=== PATIENT | male | born 1945 | race Caucasian/White ===

== ENCOUNTER 2019-06-29 16:23 | Observation (INO) ==
[2019-06-29] MEDS ORDERED: *HR* HYDROmorphone (PF) 1 MG/ML SYRINGE IVP PRN (17:06)
[2019-06-29] MEDS ORDERED: Ketorolac 30 MG/ML VIAL IVP ONE (17:06)
[2019-06-29 17:18] LABS: Basophils % 0.5 %; Eosinophils # 0.1 K/mcL (0.0-0.6); Eosinophils % 1.4 %; Hematocrit 43.9 % (37.5-50.1); Hemoglobin 15.3 g/dL (12.9-16.9); Immature Granulocytes % 0.3 % (0-4); Lymphocytes # 2.2 K/mcL (0.6-4.6); Lymphocytes % 29.4 %; Mean Corpuscular HGB Conc 34.9 g/dL (31.6-35.5); Mean Corpuscular Hemoglobin 30.7 pg (28.0-33.3); Mean Corpuscular Volume 88.2 fL (83.0-100.0); Mean Platelet Volume 9.3 fL (9.4-12.4); Monocytes # 0.6 K/mcL (0.0-1.3); Monocytes % 8.4 %; Neutrophils # 4.6 K/mcL (1.6-8.9); Platelet Count 249 K/mcL (140-400); Red Blood Count 4.98 M/mcL (4.19-5.50); Red Cell Distribution Width 12.8 % (11.5-14.5); White Blood Count 7.6 K/mcL (4.3-11.1)
--- NOTE | 2019-06-29 17:20 | Emergency Department Note ---
Disposition Clinical Impression: Left flank pain, Left ureteral stone Disposition: Admitted As Inpatient Condition: Good Referrals: Melissa Callahan DO [Primary Care Provider] - Forms: ED Satisfaction Letter, Work/School Release Time of Disposition: 19:01 Abdominal Pain HPI - General Chief Complaint: ED Abdominal Pain Stated Complaint: Kidney stone right side Time Seen by Provider: 06/29/19 16:49 Source: patient Mode of arrival: ambulatory Limitations: no limitations Nursing Notes Reviewed: Yes Vital Signs Reviewed: Yes - History of Present Illness HPI Narrative: 73-year-old male presents emergency room for left-sided flank and abdominal pain. Patient has a history of a recently diagnosed kidney stone on Thursday. 3 mm left mid ureter. Had been taking oxycodone. Pain got worse today about 3 PM. Admits to vomiting. Has no other complaints at this time. Pain is isolated to the left flank and left-sided was abdomen. Pain Scale: 10 - Related Data Home Medications Medication Instructions Recorded Confirmed Cholecalciferol (Vitamin D3) 1,000 unit PO DAILY 06/29/19 06/29/19 [Vitamin D] [place]-3/Dha/Epa/Fish Oil [Fish Oil 1 each PO DAILY 06/29/19 06/29/19 EC 1,000 mg Softgel] Omeprazole 20 mg PO DAILY 06/29/19 06/29/19 Vit A/Vit C/Vit E/Zinc/Copper 1 each PO BID 06/29/19 06/29/19 [Icaps Areds Softgel] hydroCHLOROthiazide 12.5 mg PO DAILY 06/29/19 06/29/19 [Hydrochlorothiazide] Allergies Allergy/AdvReac Type Severity Reaction Status Date / Time No Known Allergies Allergy Verified 06/29/19 16:25 Review of Systems: Gen.: No fevers or chills or new weakness Eyes: Denies double vision or any vision changes Ears: Denies any otalgia Pharynx: Denies sore throat CV: Denies chest pain. Denies palpitations Respiratory: Denies any cough or sputum production. No shortness of breath. GI: Denies any nausea, vomiting, diarrhea, constipation. Denies abdominal pain Neuro: Denies any headache. No problems with ambulation. No numbness. Skin: Denies any rashes or abrasions Psych: Denies any depression or suicidal or homicidal ideation Musculoskeletal: Denies any arthralgias or myalgias All systems ED: reviewed and negative except as stated. Abdominal Pain PMH - Past Medical History Medical history: Reports: kidney stones Male Surgical History: Reports: non-contributory, other - Social History Smoking status: Never smoker Alcohol use: Reports: none Drug use: Reports: none Physical Exam - General Limitations: no limitations General appearance: alert, in distress - Head Head exam: atraumatic, normocephalic - ENT ENT exam: normal exam - Neck Neck exam: Present: normal inspection - Chest Chest inspection: Present: normal inspection - Respiratory Respiratory exam: Present: normal lung sounds bilaterally - Cardiovascular Cardiovascular exam: Present: regular rate, normal rhythm - Abdominal Exam Abdominal exam: Present: soft, tenderness (Patient has tenderness over the left flank and left-sided the abdomen.), normal bowel sounds - Back Exam Back exam: Present: CVA tenderness (L) - Neurological Exam Neurological exam: Present: alert, oriented X3 - Psychiatric Psychiatric exam: Present: normal affect - Skin Skin exam: Present: warm, dry, intact Course Vital Signs Temperature 97.8 F 06/29/19 16:26 Pulse Rate 77 06/29/19 16:26 Respiratory Rate 18 06/29/19 16:26 Blood Pressure 180/92 06/29/19 16:26 O2 Sat by Pulse Oximetry 97 06/29/19 16:26 Temperature 97.8 F 06/29/19 17:30 Pulse Rate 71 06/29/19 18:52 Respiratory Rate 16 06/29/19 18:52 Blood Pressure 143/69 06/29/19 18:52 O2 Sat by Pulse Oximetry 95 06/29/19 18:52 Oxygen Delivery Oxygen Delivery Room Air Abdominal Pain - MDM Narrative Medical decision making narrative: I did speak with Dr. Pablo with urology. We will see the patient and likely do a stone retrieval tomorrow. Continue with pain control. We have ordered some oral pain medication. - Medical Records Medical records reviewed: Yes I reviewed the patient's medical records. - Lab Data Lab results reviewed: Yes I reviewed the patient's lab results. Result diagrams: 06/29/19 17:04 06/29/19 17:04 Lab Results 06/29/19 06/29/19 06/29/19 Range/Units 17:04 17:04 17:55 WBC 7.6 (4.3-11.1) K/mcL RBC 4.98 (4.19-5.50) M/mcL Hgb 15.3 (12.9-16.9) g/dL Hct 43.9 (37.5-50.1) % MCV 88.2 (83.0-100.0) fL MCH 30.7 (28.0-33.3) pg MCHC 34.9 (31.6-35.5) g/dL RDW 12.8 (11.5-14.5) % Plt Count 249 (140-400) K/mcL MPV 9.3 L (9.4-12.4) fL Immature Gran % 0.3 (0-4) % Seg Neutrophils % 60.0 % Lymphocytes % 29.4 % Monocytes % 8.4 % Eosinophils % 1.4 % Basophils % 0.5 % Neutrophils # 4.6 (1.6-8.9) K/mcL Lymphocytes # 2.2 (0.6-4.6) K/mcL Monocytes # 0.6 (0.0-1.3) K/mcL Eosinophils # 0.1 (0.0-0.6) K/mcL Basophils # 0.0 (0.0-0.2) K/mcL Sodium 136 (136-145) mEq/L Potassium 3.5 (3.5-5.1) mEq/L Chloride 102 (98-107) mEq/L Carbon Dioxide 26 (23-29) mEq/L BUN 16 (8-23) mg/dL Creatinine 1.14 (0.70-1.30) mg/dL Est GFR ( Amer) > 60 (> 60) Est GFR (Non-Af Amer) > 60 (> 60) BUN/Creatinine Ratio 14 (6-26) Glucose 125 H (70-105) mg/dL Calculated Osmolality 285 (280-300) Calcium 9.5 (8.6-10.3) mg/dL Total Bilirubin 0.5 (0.3-1.0) mg/dL AST 25 (13-39) Units/L ALT 19 (7-52) Units/L Alkaline Phosphatase 65 (34-104) Units/L Serum Total Protein 7.7 (6.4-8.9) g/dL Albumin 4.6 (3.5-5.7) g/dL Globulin 3.1 (2.4-3.5) g/dL Albumin/Globulin Ratio 1.5 (1.1-2.2) Urine Color Yellow (Yellow) Urine Clarity Clear (Clear) Urine pH 6.0 (5.0-8.0) pH Units Ur Specific [place] > 1.030 H (1.010-1.025) Urine Protein Trace (Neg-Trace) mg/dL Urine Glucose (UA) Normal (Normal) mg/dL Urine Ketones Negative (Negative) mg/dL Urine Blood Negative (Negative) Urine Nitrite Negative (Negative) Urine Bilirubin Negative (Negative) Urine Urobilinogen Normal (Normal) mg/dL Ur Leukocyte Esterase Negative (Negative) Ur Culture Indicated? NO (NO) - Radiology Data Radiology results reviewed: Yes I reviewed the patient's radiology results.
[2019-06-29 17:36] LABS: Alanine Aminotransferase 19 Units/L (7-52); Albumin 4.6 g/dL (3.5-5.7); Albumin/Globulin Ratio 1.5 (1.1-2.2); Alkaline Phosphatase 65 Units/L (34-104); Aspartate Amino Transferase 25 Units/L (13-39); BUN/Creatinine Ratio 14 (6-26); Bilirubin,Total 0.5 mg/dL (0.3-1.0); Blood Urea Nitrogen 16 mg/dL (8-23); Calcium 9.5 mg/dL (8.6-10.3); Carbon Dioxide 26 mEq/L (23-29); Chloride 102 mEq/L (98-107); Globulin 3.1 g/dL (2.4-3.5); Glucose 125 mg/dL (70-105); Osmolality,Calculated 285 (280-300); Potassium 3.5 mEq/L (3.5-5.1); Sodium 136 mEq/L (136-145); Total Protein 7.7 g/dL (6.4-8.9); eGFR For African Americans > 60 (> 60); eGFR For Non-African Americans > 60 (> 60)
[2019-06-29 18:05] LABS: Bilirubin,Urine Negative (Negative); Blood,Urine Negative (Negative); Clarity,Urine Clear (Clear); Color,Urine Yellow (Yellow); Glucose,Urine (UA) Normal (Normal); Ketones,Urine Negative (Negative); Leukocyte Esterase,Urine Negative (Negative); Nitrite,Urine Negative (Negative); Protein,Urine Trace mg/dL (Neg-Trace); Specific Gravity,Urine > 1.030 (1.010-1.025); Urobilinogen,Urine Normal (Normal)
[2019-06-29] MEDS ORDERED: *HR* HYDROmorphone (PF) 1 MG/ML SYRINGE IVP ONE (18:24)
[2019-06-29] MEDS ORDERED: *HR* OxyCODONE ER (12 HR) 10 MG TABLET PO ONE (18:45)
[2019-06-29] MEDS ORDERED: Ondansetron 4 MG/2 ML VIAL IVP ONE (20:11)
[2019-06-29] MEDS ORDERED: Naloxone 0.4 MG/ML INJ IVP PRN (20:50)
[2019-06-29] MEDS ORDERED: Acetaminophen 325 MG TABLET PO PRN (21:48)
[2019-06-29] MEDS ORDERED: traMADol 50 MG TABLET PO PRN (21:50)
[2019-06-29] MEDS ORDERED: Ondansetron 4 MG/2 ML VIAL IVP PRN (21:50)
[2019-06-29] MEDS ORDERED: amLODIPine 5 MG TABLET PO ONE (22:00)
[2019-06-29] MEDS: Ringers Solution, Lactated 1,000 ML IVC SCH (22:02)
--- NOTE | 2019-06-30 00:39 | Internal Med History&Physical ---
Date of Encounter: 06/29/19 Time of Encounter: 23:30 Internal Medicine - H&P: HPI Chief complaint: left abdominal pain Admitted From: Home Plans for Post Hospital Care: Home History of present illness: Chino Ferreira is a 73-year-old man with hypertension who presented to the emergency room with complaints of left lumbar and flank pain that has been going on for the past 5 days previously coming to the emergency room to undergo CT scan which found a nonobstructing mid left ureteral calculus measuring 3 mm Kash for conservative management with watchful waiting. He has been taking oxycodone at home but says the pain has continued to worsen and this afternoon was greatly exacerbated accompanied by nausea and vomiting. He characterized the pain as exquisitely tender and had to be given multiple narcotic doses in the emergency room to achieve moderate relief. Urology was consulted and he will be seen. La b work was grossly unremarkable. Vitals: Reviewed General: Well-developed man sitting up in bed and notable discomfort. Skin: Warm and supple. HEENT: Moist mucous membranes. No conjunctivae pallor. Neck: No lymphadenopathy. No JVD. No carotid bruits. No palpable thyroid. Chest: Normal thoracic expansion. Normal breath sounds. Clear to auscultation. Heart: Normal S1 & S2; rhythmic. No rubs or murmurs. Abdomen: Non-distended, soft and tender to palpation in the left flank. Extremities: No clubbing, cyanosis or edema. No calf tenderness. Normal distal pulses. Neurological: Awake, alert and oriented to person, place and time. No focal deficits. Psych: Affect appropriate. Assessment/Plan 1. Left kidney stone: The patient has now developed worsening pain over the last few days despite analgesics and is concerning that may now have an obstructive component and would need extraction seeing as it has not passed on its own. Will place him on IVF, analgesics/antiemetics as needed and await urology consultation for further management recommendations. No indication for antimicrobials at this time. 2. Hypertension: Poorly controlled. Will stop HCTZ for now and start amlodipine 5mg daily in the interim. 3. GERD: On omeprazole. 4. DVT prophylaxis: Antiembolic stockings ordered. Past Med Surg Social Fam HX - Past Medical History Medical history: kidney stones - Past Surgical History Additional surgical history: bladder surgery - Social History Smoking Status: Never smoker Smokeless Tobacco Status: No Alcohol use: none Drug use: none Internal Medicine - H&P: Meds Cholecalciferol (Vitamin D3) [Vitamin D] 1,000 unit PO DAILY 06/29/19 [History] [place]-3/Dha/Epa/Fish Oil [Fish Oil EC 1,000 mg Softgel] 1 each PO DAILY 06/29/19 [History] Omeprazole 20 mg PO DAILY 06/29/19 [History] Vit A/Vit C/Vit E/Zinc/Copper [Icaps Areds Softgel] 1 each PO BID 06/29/19 [History] hydroCHLOROthiazide [Hydrochlorothiazide] 12.5 mg PO DAILY 06/29/19 [History] Allergy/AdvReac Type Severity Reaction Status Date / Time No Known Allergies Allergy Verified 06/29/19 16:25 All Systems PM: A 10-system review of systems was performed and is negative for pertinent findin gs except as documented above in the HPI.Family history reviewed and found non-contributory. - Constitutional Vitals: Temp Pulse Resp BP Pulse Ox 97.6 F 56 15 132/62 93 06/29/19 23:20 06/29/19 23:20 06/29/19 23:20 06/29/19 23:20 06/29/19 23:20 Exam: . Internal Med - H&P Results - Labs CBC & Chem 7: 06/29/19 17:04 06/29/19 17:04 Labs: Short CBC 06/29/19 Range/Units 17:04 WBC 7.6 (4.3-11.1) K/mcL Hgb 15.3 (12.9-16.9) g/dL Hct 43.9 (37.5-50.1) % Plt Count 249 (140-400) K/mcL Neutrophils # 4.6 (1.6-8.9) K/mcL BMP 06/29/19 17:04 Sodium 136 Potassium 3.5 Chloride 102 Carbon Dioxide 26 BUN 16 Creatinine 1.14 Glucose 125 H Calcium 9.5 Liver Function 06/29/19 Range/Units 17:04 Total Bilirubin 0.5 (0.3-1.0) mg/dL AST 25 (13-39) Units/L ALT 19 (7-52) Units/L Alkaline Phosphatase 65 (34-104) Units/L Albumin 4.6 (3.5-5.7) g/dL Urine 06/29/19 Range/Units 17:55 Urine Color Yellow (Yellow) Urine Clarity Clear (Clear) Urine pH 6.0 (5.0-8.0) pH Units Ur Specific [place] > 1.030 H (1.010-1.025) Urine Protein Trace (Neg-Trace) mg/dL Urine Glucose (UA) Normal (Normal) mg/dL - Time Spent With Patient Total time spent is greater than 50% in coordination of care (as documented) at patient's floor/unit and/or counseling patient: Greater than 35 minutes
[2019-06-30 01:53] LABS: Basophils % 0.2 %; Eosinophils % 0.1 %; Hematocrit 38.9 % (37.5-50.1); Immature Granulocytes % 0.4 % (0-4); Lymphocytes # 1.2 K/mcL (0.6-4.6); Lymphocytes % 9.8 %; Mean Corpuscular HGB Conc 34.4 g/dL (31.6-35.5); Mean Corpuscular Hemoglobin 30.7 pg (28.0-33.3); Mean Platelet Volume 9.4 fL (9.4-12.4); Monocytes # 0.8 K/mcL (0.0-1.3); Monocytes % 6.9 %; Neutrophils # 9.9 K/mcL (1.6-8.9); Platelet Count 201 K/mcL (140-400); Red Blood Count 4.37 M/mcL (4.19-5.50); Red Cell Distribution Width 12.7 % (11.5-14.5); Segmented Neutrophils % 82.6 %
[2019-06-30 01:55] LABS: Hemoglobin 13.4 g/dL (12.9-16.9)
[2019-06-30 01:58] LABS: INR 1.2; Prothrombin Time 13.4 Seconds (9.4-12.1)
[2019-06-30 02:01] LABS: BUN/Creatinine Ratio 16 (6-26); Blood Urea Nitrogen 19 mg/dL (8-23); Calcium 8.8 mg/dL (8.6-10.3); Carbon Dioxide 27 mEq/L (23-29); Chloride 103 mEq/L (98-107); Glucose 105 mg/dL (70-105); Osmolality,Calculated 289 (280-300); Potassium 3.9 mEq/L (3.5-5.1); Sodium 138 mEq/L (136-145); eGFR For African Americans > 60 (> 60); eGFR For Non-African Americans 60 (> 60)
[2019-06-30] MEDS: Ketorolac 30 MG/ML VIAL IVP PRN ×2 (04:22→11:29)
[2019-06-30] MEDS: Ringers Solution, Lactated 1,000 ML IVC SCH (06:17)
[2019-06-30] MEDS ORDERED: Cholecalciferol (D-3) 1,000 UNIT (25MCG) TABLET PO SCH (09:00)
[2019-06-30] MEDS ORDERED: FISH OIL 1000 MG PO SCH (09:00)
[2019-06-30] MEDS ORDERED: amLODIPine 5 MG TABLET PO SCH (09:00)
--- NOTE | 2019-06-30 13:49 | Urology - Consult Note ---
<Antonette Gardner N - Last Filed: 06/30/19 13:46> Date of Encounter: 06/30/19 Time of Encounter: 12:00 - Assessment and Plan (1) Left flank pain Current Visit: Yes Status: Acute Assessment and plan: Patient is a 73-year-old male who presents with a history of left flank pain secondary to a 3 mm left midureteral stone. Patient has been admitted to the hospitalist service, and he is awaiting stone extraction later this afternoon. Currently, pain and nausea are well controlled. (2) Left ureteral stone Current Visit: Yes Status: Acute Assessment and plan: Patient is a 73-year-old male who presents with a 3 mm left midureteral stone. We discussed surgical risks and benefits, and patient verbalized understanding. Patient signed consent and he is prepared undergo a left ureteroscopic stone extraction as well as a left ureteral stent placement. Patient will remain nothing by mouth, and he is anticipating surgery later this afternoon with Dr. Pablo. Urology CN:[facility] Consult date: 06/30/19 Reason for consult Urology: Other (Left ureteral stone) Requesting physician: Samuel Whiting History of present illness: Patient is a 73-year-old male who presents with a 3 mm left midureteral stone. Patient initially presented to the emergency department on 06/25/2019 where he underwent a CT of the abdomen and pelvis revealing a 3 mm left mid ureteral stone without hydronephrosis. Patient was subsequently discharged with oral pain medication and instructed to follow-up as an outpatient. Patient reports the pain acutely worsened overnight, and he re-presents the emergency department for further evaluation. Patient was subsequently admitted for intractable pain as well as nausea and vomiting. Patient has a significant past history for renal stones, and he has undergone ESWL and ureteroscopy. Patient denies any known family history of renal stones. He admits to continued left flank pain, but he denies any dysuria, gross hematuria, fever, chills or incontinence. Past Med Surg Social Fam HX - Past Medical History Medical history: kidney stones - Past Surgical History Additional surgical history: bladder surgery - Social History Smoking Status: Never smoker Smokeless Tobacco Status: No Alcohol use: none Drug use: none - Additional Family History Additional family history: No known documented family history of renal stones Medications and Allergies Cholecalciferol (Vitamin D3) [Vitamin D] 1,000 unit PO DAILY 06/29/19 [History] [place]-3/Dha/Epa/Fish Oil [Fish Oil EC 1,000 mg Softgel] 1 each PO DAILY 06/29/19 [History] Omeprazole 20 mg PO DAILY 06/29/19 [History] Vit A/Vit C/Vit E/Zinc/Copper [Icaps Areds Softgel] 1 each PO BID 06/29/19 [History] hydroCHLOROthiazide [Hydrochlorothiazide] 12.5 mg PO DAILY 06/29/19 [History] Allergy/AdvReac Type Severity Reaction Status Date / Time No Known Allergies Allergy Verified 06/29/19 16:25 Review of Systems - Constitutional no chills, no fatigue, no fever(s) - EENT Nose, mouth and throat: no dizziness, no headache(s) - Cardiovascular no chest pain, no diaphoresis, no dyspnea - Respiratory no cough, no dyspnea - Gastrointestinal abdominal pain, nausea, vomiting - Genitourinary flank pain, no change in urinary stream, no difficulty urinating, no dysuria, no hematuria, no urinary frequency, no urinary hesitancy, no urinary incontinence, no urinary urgency - Musculoskeletal back pain, no muscle weakness - Integumentary no erythema, no rash - Neurological no confusion, no syncope - Psychiatric no anxiety, no confusion - Hematologic/Lymphatic no easy bleeding, no easy bruising - Allergic/Immunologic no throat swelling, no wheezing Exam Initial Vital Signs Temp Pulse Resp BP Pulse Ox 97.8 F 77 18 180/92 97 06/29/19 16:26 06/29/19 16:26 06/29/19 16:26 06/29/19 16:26 06/29/19 16:26 - General physical appearance Present: well developed, no distress, no pain - Eyes Present: PERRL, normal ocular movement - ENT Present: normal nares, no hearing loss, no congestion - Neck Present: no masses, trachea midline, no lymphadenopathy - Respiratory Present: normal respiratory effort - Cardiovascular Cardiovascular exam IM: RRR - Abdomen Abdomen: Present: soft, non tender. Absent: distended - Genitourinary other (Urine is transparent, clear yellow; no CVAT) - Integumentary Present: no rash, no abnormal pigmentation - Neurologic Present: normal coordination - Musculoskeletal Present: other (Normal posture) Urology Results - Labs 06/30/19 01:09 06/30/19 01:08 Abnormal lab results WBC 12.0 K/mcL (4.3-11.1) H D 06/30/19 01:09 MPV 9.3 fL (9.4-12.4) L 06/29/19 17:04 Neutrophils # 9.9 K/mcL (1.6-8.9) H 06/30/19 01:09 PT 13.4 Seconds (9.4-12.1) H 06/30/19 01:08 Glucose 125 mg/dL (70-105) H 06/29/19 17:04 Ur Specific [place] > 1.030 (1.010-1.025) H 06/29/19 17:55 Diabetes panel 06/29/19 06/30/19 Range/Units 17:04 01:08 Sodium 136 138 (136-145) mEq/L Potassium 3.5 3.9 (3.5-5.1) mEq/L Chloride 102 103 (98-107) mEq/L Carbon Dioxide 26 27 (23-29) mEq/L BUN 16 19 (8-23) mg/dL Creatinine 1.14 1.20 (0.70-1.30) mg/dL Glucose 125 H 105 (70-105) mg/dL Calcium 9.5 8.8 (8.6-10.3) mg/dL AST 25 (13-39) Units/L ALT 19 (7-52) Units/L Alkaline Phosphatase 65 (34-104) Units/L Albumin 4.6 (3.5-5.7) g/dL Calcium panel 06/29/19 06/30/19 Range/Units 17:04 01:08 Calcium 9.5 8.8 (8.6-10.3) mg/dL Albumin 4.6 (3.5-5.7) g/dL Pituitary panel 06/29/19 06/30/19 Range/Units 17:04 01:08 Sodium 136 138 (136-145) mEq/L Potassium 3.5 3.9 (3.5-5.1) mEq/L Chloride 102 103 (98-107) mEq/L Carbon Dioxide 26 27 (23-29) mEq/L BUN 16 19 (8-23) mg/dL Creatinine 1.14 1.20 (0.70-1.30) mg/dL Glucose 125 H 105 (70-105) mg/dL Calcium 9.5 8.8 (8.6-10.3) mg/dL Adrenal panel 06/29/19 06/30/19 Range/Units 17:04 01:08 Sodium 136 138 (136-145) mEq/L Potassium 3.5 3.9 (3.5-5.1) mEq/L Chloride 102 103 (98-107) mEq/L Carbon Dioxide 26 27 (23-29) mEq/L BUN 16 19 (8-23) mg/dL Creatinine 1.14 1.20 (0.70-1.30) mg/dL Glucose 125 H 105 (70-105) mg/dL Calcium 9.5 8.8 (8.6-10.3) mg/dL Total Bilirubin 0.5 (0.3-1.0) mg/dL AST 25 (13-39) Units/L ALT 19 (7-52) Units/L Alkaline Phosphatase 65 (34-104) Units/L Albumin 4.6 (3.5-5.7) g/dL All other labs normal. - Imaging CT scan - abdomen: report reviewed, image reviewed CT scan - pelvis: report reviewed, image reviewed Consult Discharge Plan - Plan Referrals: Melissa Callahan DO [Primary Care Provider] - 07/11/19 8:00 am <Efrain Pablo - Last Filed: 06/30/19 14:49> Date of Encounter: 06/30/19 - Assessment and Plan (1) Left flank pain Current Visit: Yes Status: Acute Assessment and plan: Seen and examined independently. Agree with PA assessment and plan. Discussed findings and options with patient. Plan: Ux/laser/stent today (2) Left ureteral stone Current Visit: Yes Status: Acute Assessment and plan: 3mm intermittently symptomatic with second trip to ED. Discussed RBA of Ureteroscopy laser. Plan: Ux/Laser/Stent (3) Calculus of kidney Current Visit: No Status: Acute Assessment and plan: Small nonobstructive stone in left kidney. Preventative measured indicated. Plan: will arrange for metabolic evaluation as outpatient. (4) Left renal mass Current Visit: Yes Status: Acute Assessment and plan: Hypodense lesion on noncontrast CT in lower pole of left kidney. Definitive imaging required. Plan: will arrange for renal US. Exam Initial Vital Signs Temp Pulse Resp BP Pulse Ox 97.8 F 77 18 180/92 97 06/29/19 16:26 06/29/19 16:26 06/29/19 16:26 06/29/19 16:26 06/29/19 16:26 Urology Results - Labs 06/30/19 01:09 06/30/19 01:08 Abnormal lab results WBC 12.0 K/mcL (4.3-11.1) H D 06/30/19 01:09 MPV 9.3 fL (9.4-12.4) L 06/29/19 17:04 Neutrophils # 9.9 K/mcL (1.6-8.9) H 06/30/19 01:09 PT 13.4 Seconds (9.4-12.1) H 06/30/19 01:08 Glucose 125 mg/dL (70-105) H 06/29/19 17:04 Ur Specific [place] > 1.030 (1.010-1.025) H 06/29/19 17:55 Diabetes panel 06/29/19 06/30/19 Range/Units 17:04 01:08 Sodium 136 138 (136-145) mEq/L Potassium 3.5 3.9 (3.5-5.1) mEq/L Chloride 102 103 (98-107) mEq/L Carbon Dioxide 26 27 (23-29) mEq/L BUN 16 19 (8-23) mg/dL Creatinine 1.14 1.20 (0.70-1.30) mg/dL Glucose 125 H 105 (70-105) mg/dL Calcium 9.5 8.8 (8.6-10.3) mg/dL AST 25 (13-39) Units/L ALT 19 (7-52) Units/L Alkaline Phosphatase 65 (34-104) Units/L Albumin 4.6 (3.5-5.7) g/dL Calcium panel 06/29/19 06/30/19 Range/Units 17:04 01:08 Calcium 9.5 8.8 (8.6-10.3) mg/dL Albumin 4.6 (3.5-5.7) g/dL Pituitary panel 06/29/19 06/30/19 Range/Units 17:04 01:08 Sodium 136 138 (136-145) mEq/L Potassium 3.5 3.9 (3.5-5.1) mEq/L Chloride 102 103 (98-107) mEq/L Carbon Dioxide 26 27 (23-29) mEq/L BUN 16 19 (8-23) mg/dL Creatinine 1.14 1.20 (0.70-1.30) mg/dL Glucose 125 H 105 (70-105) mg/dL Calcium 9.5 8.8 (8.6-10.3) mg/dL Adrenal panel 06/29/19 06/30/19 Range/Units 17:04 01:08 Sodium 136 138 (136-145) mEq/L Potassium 3.5 3.9 (3.5-5.1) mEq/L Chloride 102 103 (98-107) mEq/L Carbon Dioxide 26 27 (23-29) mEq/L BUN 16 19 (8-23) mg/dL Creatinine 1.14 1.20 (0.70-1.30) mg/dL Glucose 125 H 105 (70-105) mg/dL Calcium 9.5 8.8 (8.6-10.3) mg/dL Total Bilirubin 0.5 (0.3-1.0) mg/dL AST 25 (13-39) Units/L ALT 19 (7-52) Units/L Alkaline Phosphatase 65 (34-104) Units/L Albumin 4.6 (3.5-5.7) g/dL All other labs normal.
--- NOTE | 2019-06-30 14:20 | Internal Med Progress Note ---
Hospitalist Progress Note - Encounter Date of Encounter: 06/30/19 Time of Encounter: 11:00 - Subjective Interval History: Mr. Ferreira is a 73-year-old man with hypertension who presented to the emergency room with complaints of left lumbar and flank pain that has been going on for the past 5 days previously coming to the emergency room to undergo CT scan which found a nonobstructing mid left ureteral calculus measuring 3 mm Kash for conservative management with watchful waiting. He has been taking oxycodone at home but says the pain has continued to worsen and this afternoon was greatly exacerbated accompanied by nausea and vomiting. He was admitted in the hospital and placed him on IV analgesics and IV hydration. Pt stated he still in severe Left flank pain associated with Nausea and Vomiting. - Exam Vitals: Temp Pulse Resp BP Pulse Ox 97.9 F 70 16 161/76 94 06/30/19 11:21 06/30/19 11:21 06/30/19 11:21 06/30/19 11:21 06/30/19 11:21 Exam: Gen: Alert, awake, Oriented to time,place and person Chest: Diminished breath sounds B/L, No wheezing, No crackles, No rales Heart: S1S2+ RRR No murmurs Abd: Soft, NT, BS +, No organomegaly Back: Left CVA tenderness Ext: No edema, pulses are palpable, No calf tenderness Neuro : No acute focal neuro deficits noticed Skin: No rash. - Assessment and Plan (1) Left ureteral stone Current Visit: Yes Status: Acute Assessment and Plan: He does have 3mm Mid left ureter calculus Cont IV analgesics UA - WNL No signs of inf Urology on board Scheduled for possible cystoscopy (2) Calculus of kidney Current Visit: No Status: Acute Assessment and Plan: care as above (3) HTN (hypertension) Current Visit: Yes Status: Acute Assessment and Plan: Fairly controlled Cont Norvasc for now on IV hydralazine PRN (4) GERD (gastroesophageal reflux disease) Current Visit: Yes Status: Acute Assessment and Plan: on PPI - Time Spent with Patient Total time spent is greater than 50% in coordination of care (as documented) at patient's floor/unit and/or counseling patient: Internal Medicine: Result - Labs CBC & Chem 7: 06/30/19 01:09 06/30/19 01:08 Labs: Short CBC 06/29/19 06/30/19 Range/Units 17:04 01:09 WBC 7.6 12.0 H D (4.3-11.1) K/mcL Hgb 15.3 13.4 D (12.9-16.9) g/dL Hct 43.9 38.9 (37.5-50.1) % Plt Count 249 201 (140-400) K/mcL Neutrophils # 4.6 9.9 H (1.6-8.9) K/mcL BMP 06/29/19 06/30/19 17:04 01:08 Sodium 136 138 Potassium 3.5 3.9 Chloride 102 103 Carbon Dioxide 26 27 BUN 16 19 Creatinine 1.14 1.20 Glucose 125 H 105 Calcium 9.5 8.8 Liver Function 06/29/19 Range/Units 17:04 Total Bilirubin 0.5 (0.3-1.0) mg/dL AST 25 (13-39) Units/L ALT 19 (7-52) Units/L Alkaline Phosphatase 65 (34-104) Units/L Albumin 4.6 (3.5-5.7) g/dL Urine 06/29/19 Range/Units 17:55 Urine Color Yellow (Yellow) Urine Clarity Clear (Clear) Urine pH 6.0 (5.0-8.0) pH Units Ur Specific [place] > 1.030 H (1.010-1.025) Urine Protein Trace (Neg-Trace) mg/dL Urine Glucose (UA) Normal (Normal) mg/dL - ABG Interpretation ABG results: PT/INR, D-dimer PT 13.4 Seconds (9.4-12.1) H 06/30/19 01:08 Consult Discharge Plan - Plan Referrals: Melissa Callahan DO [Primary Care Provider] - 07/11/19 8:00 am (3) HTN (hypertension) Qualifiers: Hypertension type: essential hypertension Qualified Code(s): I10 - Essential (primary) hypertension
[2019-06-30] MEDS ORDERED: *HR* Midazolam HCl 2 MG/2 ML VIAL ONE (16:01)
[2019-06-30] MEDS ORDERED: *HR* FentaNYL (PF) 100 MCG/2 ML VIAL ONE (16:01)
[2019-06-30] MEDS ORDERED: *HR* Propofol 200 MG/20 ML VIAL IVP ONE (16:01)
[2019-06-30] MEDS ORDERED: Lidocaine -MPF 2% 2 ML VIAL ONE (16:07)
[2019-06-30] MEDS ORDERED: Ondansetron 4 MG/2 ML VIAL ONE ×2 (16:07→17:30)
[2019-06-30] MEDS ORDERED: CeFAZolin Syr 2,000MG/20 ML 2,000 MG/20 ML SYRINGE IVPB ONE (16:10)
[2019-06-30] MEDS ORDERED: Acetaminophen IV 1,000 MG/100 ML INFUS..BTL ONE (16:35)
[2019-06-30] MEDS ORDERED: Famotidine 20 MG/2 ML VIAL ONE (16:35)
--- NOTE | 2019-06-30 16:47 | Anesthesia Evaluation PreOp ---
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 Other Medical History: GERD Anesthesia History: No Prior Anesthetic Complications, Past Anesthesia (cystoscopy, shoulder surgery, and multiple skin cancer excisions) Alcohol Use: none Drug use: none Medications and Allergies Cholecalciferol (Vitamin D3) [Vitamin D] 1,000 unit PO DAILY 06/29/19 [History] [place]-3/Dha/Epa/Fish Oil [Fish Oil EC 1,000 mg Softgel] 1 each PO DAILY 06/29/19 [History] Omeprazole 20 mg PO DAILY 06/29/19 [History] Vit A/Vit C/Vit E/Zinc/Copper [Icaps Areds Softgel] 1 each PO BID 06/29/19 [History] hydroCHLOROthiazide [Hydrochlorothiazide] 12.5 mg PO DAILY 06/29/19 [History] Allergy/AdvReac Type Severity Reaction Status Date / Time No Known Allergies Allergy Verified 06/29/19 16:25 - Meds/Allergy Pre-op Review Medications Reviewed: Yes Allergies Reviewed: Yes (NKDA) Beta Blockers on Current Med List: No Anesthesia Results - Labs 06/30/19 01:09 06/30/19 01:08 Anesthesia Exam Vital Signs/O2 Sat/Glucose, Most Recent Temp Pulse Resp BP Pulse Ox 98.1 F 65 16 143/75 96 06/30/19 15:09 06/30/19 15:09 06/30/19 15:09 06/30/19 15:09 06/30/19 15:09 Height: 5'7' Weight: 83kg NPO (# of Hours): NPO after Midnight Pain Scale: 2 - HEENT Pupil (Motor): Pupils equal Mallampati: II Teeth: Normal (Partial), Prosthesis Denture Type: Upper: Partial Oral Opening: Greater than 3 - 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
[2019-06-30] MEDS ORDERED: EPHEDrine 50 MG/ML VIAL ONE (17:20)
[2019-06-30] MEDS ORDERED: Dexamethasone 4 MG/ML VIAL ONE (17:24)
--- NOTE | 2019-06-30 18:11 | Anesthesia Evaluation Post Op ---
Date of Encounter: 06/30/19 Time of Encounter: 18:10 - Vital Signs Vital Signs: Vital Signs/O2 Sat, Most Current Temp Pulse Resp BP Pulse Ox 98.2 F 83 14 140/88 99 06/30/19 17:45 06/30/19 18:05 06/30/19 18:05 06/30/19 18:05 06/30/19 18:05 - Lungs Lungs: Clear Ascult./Percussion - Airway Airway: Non-obstructed - Cardiovascular Regular Rate - Mental Status Mental Status: Alert & Oriented, Answers Appropriately - Pain Pain Scale: 0 Pain Scale used: Numeric (1 - 10) - Nausea Vomiting Nausea Vomiting: Not Present - Hydration Hydration: Ice chips, Able to void - Discharge PostOp Status: Transfer Patient to floor
[2019-06-30] MEDS ORDERED: Ketorolac 30 MG/ML VIAL IVP PRN (19:18)
[2019-06-30] MEDS ORDERED: Ondansetron 4 MG/2 ML VIAL IVP PRN (19:18)
[2019-06-30] MEDS ORDERED: Acetaminophen 325 MG TABLET PO PRN (19:18)
[2019-06-30] MEDS ORDERED: Naloxone 0.4 MG/ML INJ IVP PRN (19:18)
[2019-06-30] MEDS ORDERED: traMADol 50 MG TABLET PO PRN (19:18)
[2019-07-01] MEDS ORDERED: amLODIPine 5 MG TABLET PO SCH (09:00)
[2019-07-01] MEDS ORDERED: FISH OIL 1000 MG PO SCH (09:00)
[2019-07-01] MEDS ORDERED: Cholecalciferol (D-3) 1,000 UNIT (25MCG) TABLET PO SCH (09:00)
[2019-07-01 10:45] VITALS: BP 142/70
--- NOTE | 2019-07-01 11:01 | Operative Note ---
Date of procedure: 06/30/19 Pre-op diagnosis: Left ureteral calculus Post-op diagnosis: same Procedure: Cystoscopy, left retrograde ureteral pyelography, dilation ureteral stricture, basket extraction of left ureteral calculus. Intraoperative interpretation of radiographic images in real time by surgeon for left retrograde pyelogram. Implants: 6 x 26 left double-J stent Complications: None Anesthesia: GETA Surgeon: Efrain Pablo Was there an care assistant present: No Estimated blood loss (cc): 2 Specimen: Left ureteral calculus Condition: stable Disposition: PACU Procedure in Detail: The patient brought the operating theater placed on table in supine position. The patient was identified by name and administered a general anesthetic. The patient placed dorsal lithotomy then prepped and draped in normal sterile fashion. The endoscope was inserted urethral meatus and advanced with the bladder under direct visualization. An cystoscopy was performed there were no mucosal abnormalities. There is a tight left UO. Was difficult shoot a retrograde pyelogram. Hydronephrosis was noted. A Glidewire was placed. We attempted advanced ureteroscope but stricture in the area of the intramural portion of the ureter prevented advancement of the scope. We then performed ureteral dilation using A-10 dilator. Following this the ureteroscope was advanced. In the distal ureter stone was encountered. Using stone basket stone was grasped and removed intact. Over the existing Glidewire a 6 x 26 left double-J stent was advanced. All instruments were removed from the patient's bladder this ended the operative procedure.
--- NOTE | 2019-07-01 11:56 | Discharge Summary ---
- NOTES TO OUTPATIENT PROVIDER Notes to Outpatient Provider: f/u with PCP in one week. f/u with Urologist in 1-2 weeks as scheduled. Orders not resulted at time of discharge: Pending orders 06/30/19 18:01 Calculi (stone) Analysis Routine Surgical Pathology [PTH] Routine Date of Encounter: 07/01/19 Time of Encounter: 11:56 - Discharge Diagnosis (1) Left ureteral stone Priority: Primary Status: Acute (2) Calculus of kidney Priority: Primary Status: Acute (3) HTN (hypertension) Priority: Secondary Status: Acute Qualifiers: Hypertension type: essential hypertension Qualified Code(s): I10 - Essential (primary) hypertension (4) GERD (gastroesophageal reflux disease) Priority: Secondary Status: Acute Qualifiers: Esophagitis presence: without esophagitis Qualified Code(s): K21.9 - Gastro-esophageal reflux disease without esophagitis Hospital course: Mr. Ferreira is a 73-year-old man with hypertension who presented to the emergency room with complaints of left lumbar and flank pain that has been going on for the past 5 days previously coming to the emergency room to undergo CT scan which found a nonobstructing mid left ureteral calculus measuring 3 mm Kash for conservative management with watchful waiting. He has been taking oxycodone at home but says the pain has continued to worsen and this afternoon was greatly exacerbated accompanied by nausea and vomiting. He was admitted in the hospital and placed him on IV analgesics and IV hydration. Urine cx show mixed organism. However he remained afebrile and his UA - WNL. He was seen by urologist who did Cystoscopy, left retrograde ureteral pyelography, dilation ureteral stricture, basket extraction of left ureteral calculus. Today pt is feeling much better. Pain well controlled with medication. He also has left double J stent placement. Will d/c him home in stable condition today. - Time Spent with Patient Total time spent providing and/or coordinating discharge services: - Discharge Medications Prescriptions: New amLODIPine [Norvasc] 5 mg PO DAILY #30 tablet Oxycodone HCl/Acetaminophen [Percocet 5-325 mg Tablet] 1 each PO Q8H PRN 5 Days #15 tablet PRN Reason: Pain Cephalexin [Keflex] 500 mg PO TID #15 capsule Continued hydroCHLOROthiazide [Hydrochlorothiazide] 12.5 mg PO DAILY Omeprazole 20 mg PO DAILY [place]-3/Dha/Epa/Fish Oil [Fish Oil EC 1,000 mg Softgel] 1 cap PO DAILY Cholecalciferol (Vitamin D3) [Vitamin D3] 1,000 unit PO DAILY Vit A/Vit C/Vit E/Zinc/Copper [Icaps Areds Softgel] 1 each PO BID Cetirizine HCl [24Hour Allergy] 10 mg PO DAILY Montelukast [Singulair] 10 mg PO DAILY Home Medications: Cholecalciferol (Vitamin D3) [Vitamin D3] 1,000 unit PO DAILY 06/29/19 [History] [place]-3/Dha/Epa/Fish Oil [Fish Oil EC 1,000 mg Softgel] 1 cap PO DAILY 06/29/19 [History] Omeprazole 20 mg PO DAILY 06/29/19 [History] Vit A/Vit C/Vit E/Zinc/Copper [Icaps Areds Softgel] 1 each PO BID 06/29/19 [History] hydroCHLOROthiazide [Hydrochlorothiazide] 12.5 mg PO DAILY 06/29/19 [History] Cetirizine HCl [24Hour Allergy] 10 mg PO DAILY 06/30/19 [History] Montelukast [Singulair] 10 mg PO DAILY 06/30/19 [History] Cephalexin [Keflex] 500 mg PO TID #15 capsule 07/01/19 [Rx] Oxycodone HCl/Acetaminophen [Percocet 5-325 mg Tablet] 1 each PO Q8H PRN 5 Days #15 tablet 07/01/19 [Rx] amLODIPine [Norvasc] 5 mg PO DAILY #30 tablet 07/01/19 [Rx] Allergies/Adverse Reactions: Allergy/AdvReac Type Severity Reaction Status Date / Time No Known Allergies Allergy Verified 06/29/19 16:25 Date of admission: 06/29/19 19:56 Primary care physician: Melissa Callahan DO Consults: 06/29/19 18:43 Consult to Urology [CONS] Stat Consulting Provider: Urology Anita Reason for Consult: ureteral stone Call Completed: Yes - Constitutional Vitals: Temp Pulse Resp BP Pulse Ox 98.1 F 64 16 142/70 97 07/01/19 10:42 07/01/19 10:42 07/01/19 10:42 07/01/19 10:42 07/01/19 10:42 General appearance: Present: cooperative, A&O X 3, no acute distress, answers questions appropriately Exam: Gen: Alert, awake, Oriented to time,place and person Chest: Diminished breath sounds B/L, No wheezing, No crackles, No rales Heart: S1S2+ RRR No murmurs Abd: Soft, NT, BS +, No organomegaly Back: No CVA tenderness Ext: No edema, pulses are palpable, No calf tenderness Neuro : No acute focal neuro deficits noticed Skin: No rash. - Patient Status Disposition: Home, Self-Care Condition: Good Overall status at discharge: patient is back to baseline - Discharge Instructions Instructions: Oxycodone/Acetaminophen (By mouth), Amlodipine (By mouth) Follow Up With: Melissa Callahan DO [Primary Care Provider] - 07/11/19 8:00 am Efrain Pablo [Partnered Physician] - (AN appointment has been requested. The office will contact you at home. ) - Diet and Activity Activity: increase activity as tolerated Diet: low salt diet
[2019-07-04 20:57] LABS: Calculi Mass 14 mg
== END 2019-07-01 12:44 | disposition home or self-care (01) ==
LOC: 3BNU 16:23 → EMEROOARM 16:23 → SUATTDRO 19:56 → 3BNU 20:22
PROVIDERS: ADMIT Internal Medicine; ATTEND Family Medicine